=== PATIENT | male | born 1930 | race Caucasian/White ===

== ENCOUNTER 2017-08-21 14:05 | Observation (INO) | payer MEDICARE ==
[~2017-08-21] VITALS: Ht 188 cm; Wt 103.0 kg
[~2017-08-21 14:05] MED LIST: SYNT137T PO; TAMS0.4C67 PO
[2017-08-21 14:19] VITALS: BP 140/60; PULSE 78; RESP 16; TEMP 98.2; O2SAT 97
[2017-08-21] MEDS ORDERED: SODIUM CHLOR 0.9% 1000 ML INJ 1,000 ML IV SCH ×2 (14:56→17:15)
[2017-08-21] MEDS ORDERED: SODIUM CHLORIDE 0.9% FLUSH 10 ML FLUSH IV FLUSH PRN (15:00)
[2017-08-21 15:02] VITALS: O2SAT 97
[2017-08-21] MEDS ORDERED: LEVO137T2 PO (15:19)
[2017-08-21] MEDS ORDERED: TAMS0.4C4 (15:19)
[2017-08-21 15:20] VITALS: BP 95/64; PULSE 75; RESP 20
[2017-08-21 15:21] LABS: AUTOMATED NEUTROPHIL # 4.1 TH/MM3 (1.8-7.7); BASOPHIL # 0.1 TH/MM3 (0-0.2); BASOPHIL % 0.8 % (0.0-2.0); EOSINOPHIL # 0.1 TH/MM3 (0-0.4); EOSINOPHIL % 0.8 % (0.0-4.0); HEMATOCRIT 24.1 % (39.0-51.0); HEMOGLOBIN 8.2 GM/DL (13.0-17.0); LYMPH % 17.1 % (9.0-44.0); LYMPHOCYTE # 1.1 TH/MM3 (1.0-4.8); MEAN CELL VOLUME 89.6 FL (80.0-100.0); MEAN CORPUSCULAR HEMOGLOBIN 30.5 PG (27.0-34.0); MEAN CORPUSCULAR HGB CONC 34.1 % (32.0-36.0); MEAN PLATELET VOLUME 10.1 FL (7.0-11.0); MONO % 16.3 % (0.0-8.0); PLATELET COUNT 159 TH/MM3 (150-450); RED BLOOD COUNT 2.69 MIL/MM3 (4.50-5.90); RED CELL DISTRIBUTION WIDTH 15.3 % (11.6-17.2); WHITE BLOOD COUNT 6.4 TH/MM3 (4.0-11.0)
[2017-08-21 15:28] LABS: CHLORIDE 97 MEQ/L (98-107); SODIUM (NA) 130 MEQ/L (136-145)
[2017-08-21 15:31] LABS: CALCIUM 8.1 MG/DL (8.5-10.1)
[2017-08-21 15:32] LABS: ALBUMIN 2.6 GM/DL (3.4-5.0); BICARBONATE 22.8 MEQ/L (21.0-32.0); BLOOD UREA NITROGEN 35 MG/DL (7-18); GLUCOSE,RANDOM 99 MG/DL (74-106)
[2017-08-21 15:34] LABS: PROTHROMBIN TIME - PATIENT 10.4 SEC (9.8-11.6)
[2017-08-21 15:35] LABS: ALT (GPT) 25 U/L (12-78); AST (GOT) 39 U/L (15-37); GLOMERULAR FILTRATION RATE 30 ML/MIN (>89)
[2017-08-21 15:37] LABS: TOTAL BILIRUBIN ADULT 0.4 MG/DL (0.2-1.0); TOTAL PROTEIN 7.1 GM/DL (6.4-8.2)
[2017-08-21 15:38] LABS: ALKALINE PHOSPHATASE 79 U/L (45-117)
[2017-08-21 15:40] LABS: TROPONIN I LESS THAN 0.02 NG/ML (0.02-0.05)
--- NOTE | 2017-08-21 15:43 | PD ---
HPI Chief Complaint: General Weakness Time Seen by Provider: 14:40 Travel History International Travel<30 days: No Contact w/Intl Traveler<30days: No Traveled to known affect area: No History of Present Illness HPI Patient is an 87-year-old male who comes in complaining of generalized weakness. It sounds like he has been having issues for the past few months, that have worsened for the past 2 weeks. Both he and his are poor historians. His is most concerned about him being able to see the doctors who he has scheduled appointments for. He does have CAT scan results with him that showed that he has metastatic renal cell carcinoma, however he does not seem to understand that he has this. He describes at some point needing a blood transfusion, but refusing it. He denies any blood in his stool or dark stools. He says he gets very short of breath when he walks. He says he feels like his legs are going to give out on him. He denies having any pains. He says that he has not been eating because all food taste bad to him. He does report drinking fluids. It is unclear what makes him feel better or worse. Severity is moderate. 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) Autoimmune Disease: No Blood Disorders: No Cancer: No Cardiovascular Problems: No High Cholesterol: Yes Diabetes: No Diminished Hearing: No Endocrine: Yes Gastrointestinal Disorders: Yes (GERD) Glaucoma: No Genitourinary: No Hepatitis: No Hiatal Hernia: No Immune Disorder: No Musculoskeletal: Yes (ARTHRITIS) Neurologic: No Psychiatric: No Reproductive: No Respiratory: No Thyroid Disease: Yes Influenza Vaccination: No Past Surgical History Abdominal Surgery: Yes (GALL BLADDER, APPY) AICD: No Appendectomy: Yes Arteriovenous Shunt: No Cardiac Surgery: No Cholecystectomy: Yes Ear Surgery: No Endocrine Surgery: No Genitourinary Surgery: No Insulin Pump: No Joint Replacement: No Oral Surgery: No Pacemaker: No Thoracic Surgery: No Social History Alcohol Use: Yes (OCC) Tobacco Use: No Substance Use: No Allergies-Medications (Allergen,Severity, Reaction): Coded Allergies: cephalexin (Unverified Allergy, Severe, RASH, 08/21/17) Reported Meds & Prescriptions Reported Meds & Active Scripts Active Reported Tamsulosin (Tamsulosin HCl) 0.4 Mg Cap 0.4 Mg HS Levothyroxine (Levothyroxine Sodium) 137 Mcg Tab 112 Mcg PO DAILY Review of Systems ROS Limitations: Uncooperative General / Constitutional: No: Fever Cardiovascular: No: Chest Pain or Discomfort Respiratory: Positive: Shortness of Breath Gastrointestinal: No: Nausea, Abdominal Pain Musculoskeletal: Positive: Edema Neurologic: Positive: Weakness Physical Exam Narrative GENERAL: Awake and alert, in no acute distress. SKIN: Focused skin assessment warm/dry. Pale in color, no wounds or signs of infection. HEAD: Atraumatic. Normocephalic. EYES: Pupils equal and round. No scleral icterus. Pale conjunctivae. ENT: Mucous membranes pink and moist. NECK: Trachea midline. No JVD. CARDIOVASCULAR: Regular rate and rhythm. No murmur appreciated. RESPIRATORY: No accessory muscle use. Clear to auscultation. Breath sounds equal bilaterally. GASTROINTESTINAL: Abdomen soft, non-tender, nondistended. MUSCULOSKELETAL: No obvious deformities. No clubbing. No cyanosis. 3+ pitting edema bilateral lower extremities. NEUROLOGICAL: Awake and alert. No obvious cranial nerve deficits. Motor grossly within normal limits. Normal speech. PSYCHIATRIC: Appropriate mood and affect; insight and judgment normal. Data Data Last Documented VS Vital Signs Date Time Temp Pulse Resp B/P (MAP) Pulse Ox O2 Delivery O2 Flow Rate FiO2 08/21/17 15:20 75 20 95/64 (74) 08/21/17 15:02 97 Room Air 08/21/17 14:19 98.2 Orders Orders Electrocardiogram (08/21/17 14:56) Complete Blood Count With Diff (08/21/17 14:56) Comprehensive Metabolic Panel (08/21/17 14:56) Prothrombin Time / Inr (Pt) (08/21/17 14:56) Act Partial Throm Time (Ptt) (08/21/17 14:56) Troponin I (08/21/17 14:56) Thyroid Stimulating Hormone (08/21/17 14:56) Lactic Acid Sepsis Protocol (08/21/17 14:56) Chest, Single Ap (08/21/17 14:56) Ct Brain W/O Iv Contrast(Rout) (08/21/17 14:56) Blood Glucose (08/21/17 14:56) Ecg Monitoring (08/21/17 14:56) Iv Access Insert/Monitor (08/21/17 14:56) Oximetry (08/21/17 14:56) Sodium Chloride 0.9% Flush (Ns Flush) (08/21/17 15:00) Sodium Chlor 0.9% 1000 Ml Inj (Ns 1000 M (08/21/17 14:56) Type And Screen (08/21/17 14:58) Admit Order (Ed Use Only) (08/21/17 ) Consult Palliative Care (08/21/17 ) Labs Laboratory Tests Test 08/21/17 15:00 08/21/17 15:35 White Blood Count 6.4 TH/MM3 Red Blood Count 2.69 MIL/MM3 Hemoglobin 8.2 GM/DL Hematocrit 24.1 % Mean Corpuscular Volume 89.6 FL Mean Corpuscular Hemoglobin 30.5 PG Mean Corpuscular Hemoglobin Concent 34.1 % Red Cell Distribution Width 15.3 % Platelet Count 159 TH/MM3 Mean Platelet Volume 10.1 FL Neutrophils (%) (Auto) 65.0 % Lymphocytes (%) (Auto) 17.1 % Monocytes (%) (Auto) 16.3 % Eosinophils (%) (Auto) 0.8 % Basophils (%) (Auto) 0.8 % Neutrophils # (Auto) 4.1 TH/MM3 Lymphocytes # (Auto) 1.1 TH/MM3 Monocytes # (Auto) 1.0 TH/MM3 Eosinophils # (Auto) 0.1 TH/MM3 Basophils # (Auto) 0.1 TH/MM3 CBC Comment DIFF FINAL Differential Comment Prothrombin Time 10.4 SEC Prothromb Time International Ratio 1.0 RATIO Activated Partial Thromboplast Time 28.5 SEC Blood Urea Nitrogen 35 MG/DL Creatinine 2.10 MG/DL Random Glucose 99 MG/DL Total Protein 7.1 GM/DL Albumin 2.6 GM/DL Calcium Level 8.1 MG/DL Alkaline Phosphatase 79 U/L Aspartate Amino Transf (AST/SGOT) 39 U/L Alanine Aminotransferase (ALT/SGPT) 25 U/L Total Bilirubin 0.4 MG/DL Sodium Level 130 MEQ/L Potassium Level 4.8 MEQ/L Chloride Level 97 MEQ/L Carbon Dioxide Level 22.8 MEQ/L Anion Gap 10 MEQ/L Estimat Glomerular Filtration Rate 30 ML/MIN Troponin I LESS THAN 0.02 NG/ML Thyroid Stimulating Hormone 3rd Gen 19.000 uIU/ML Lactic Acid Level 1.9 mmol/L MDM Medical Decision Making Medical Screen Exam Complete: Yes Emergency Medical Condition: Yes Medical Record Reviewed: Yes Interpretation(s) ECG shows normal sinus rhythm at 68 with first-degree AV block. Differential Diagnosis Electrolyte abnormalities versus anemia versus metastatic carcinoma Narrative Course Patient is an 87-year-old male who comes in complaining of weakness. Exam shows large edema of his bilateral lower extremities. Patient is slightly hypotensive as well. IV established, labs sent. Labs show a hemoglobin of 8.2. Patient given IV fluids. CT head obtained, shows no acute abnormalities. . Chest x-ray ordered shows no acute abnormalities. Patient has elevated Cr. He is weak and unable to walk. He will be admitted for further management. Diagnosis Primary Impression: Metastatic cancer Additional Impressions: Weakness Unable to walk Admitting Information Admitting Physician Requests: Admit Paty Mejia MD Aug 21, 2017 15:43
--- NOTE | 2017-08-21 15:45 | RADRPT ---
EXAM DATE/TIME: 08/21/2017 15:21 [facility] COMPARISON: No previous studies available for comparison. INDICATIONS : Weakness for 2 months MEDICAL HISTORY : None. SURGICAL HISTORY : None. ENCOUNTER: Initial ACUITY: 2 months PAIN SCORE: 0/10 LOCATION: Bilateral chest FINDINGS: A single view of the chest demonstrates the lungs to be symmetrically aerated without evidence of mas s, infiltrate or effusion. The cardiomediastinal contours are unremarkable. Osseous structures are intact. CONCLUSION: Negative for acute process Grey Helms MD FACR on August 21, 2017 at 15:43 Board Certified Radiologist. This report was verified electronically.
--- NOTE | 2017-08-21 16:00 | RADRPT ---
EXAM DATE/TIME: 08/21/2017 15:13 [facility] COMPARISON: CT BRAIN W/O CONTRAST, August 21, 2015, 13:09. INDICATIONS : Weakness. RADIATION DOSE: 60.87 CTDIvol (mGy) MEDICAL HISTORY : None SURGICAL HISTORY : None. ENCOUNTER: Initial ACUITY: 2 months PAIN SCALE: 0/10 LOCATION: cranial Complete Appropriate Items Uzt-[id number]-[id number]: ID X 2: Complete NameDate of BirthPatient Name Band Estimated radiation dose: Verified protocol and related expected exam dose. Education: Nurse/Technologist explained procedure to patient/family. Patient/family demonstrates understanding of procedure. Comments: Images Restored: None for RestoreTechnologist(s) : Deepa Gross MR#[id number] :[birth year] Exam date/desc:August 21, 2017CT BRAIN W/O CONTRAST TECHNIQUE: Multiple contiguous axial images were obtained of the head. Using automated exposure control and adj ustment of the mA and/or kV according to patient size, radiation dose was kept as low as reasonably a chievable to obtain optimal diagnostic quality images. DICOM format image data is available electro nically for review and comparison. FINDINGS: CEREBRUM: The ventricles are normal for age. Stable, symmetric cortical atrophy with some periventricular smal l vessel ischemic demyelination and an old punctate lacunar type infarct in the left basal ganglia. N o evidence of midline shift, mass lesion, hemorrhage or acute infarction. No extra-axial fluid colle ctions are seen. POSTERIOR FOSSA: The cerebellum and brainstem are intact. The 4th ventricle is midline. The cerebellopontine angle i s unremarkable. EXTRACRANIAL: The visualized portion of the orbits is intact. Small retention cyst posteriorly in the right maxilla ry antrum. SKULL: The calvaria is intact. No evidence of skull fracture. CONCLUSION: 1. Stable chronic changes with some cortical atrophy, periventricular small vessel ischemic demyelina tion in punctate old lacunar type infarct in the left basal ganglia. 2. Small retention cyst in the posterior aspect the right maxillary antra characteristic of mild time broker maite sinusitis. 3. Nothing acute. Wilain Phelps MD on August 21, 2017 at 15:56 Board Certified Radiologist. This report was verified electronically.
[2017-08-21 16:45] VITALS: BP 122/66; PULSE 74; RESP 20; O2SAT 96
[2017-08-21] MEDS ORDERED: PANTOPRAZOLE SOD 20 MG DELAYED RELEASE TAB PO SCH (17:15)
[2017-08-21 18:00] VITALS: BP 110/68; PULSE 72; RESP 20; O2SAT 97
--- NOTE | 2017-08-21 19:01 | MH ---
cc: EDUARDA LE M.D. DATE OF ADMISSION: 08/21/2017 ADMITTING DIAGNOSIS: 1. Probable advanced bilateral renal cell carcinoma with metastasis to the bilateral retroperitoneal area and right adrenal gland, as well as renal invasion on the right side. 2. Anemia of chronic disease with iron deficiency. 3. Recent positive occult blood test. 4. Stage III chronic kidney disease. 5. BPH. 6. Hypothyroidism with increased TSH. 7. Peripheral artery disease. 8. Chronic venous insufficiency in the lower extremities. 9. Diverticulosis. 10. History of depression. PERTINENT HISTORY: The patient is an 87-year-old white male who came to the emergency room today because of just increasing fatigue. He recently has had outpatient evaluation and found to have worsening anemia. He has had a mild chronic anemia for going back to earlier in the year but recently in July a hemoglobin level done on 07/29/2017 was 8.2. His BUN then was 21, creatinine 1.4. He had a repeat hemoglobin on 08/15/17 that was 7.8. His hemoglobin was 8.6 on 08/01/2017 and at that time had a low iron level and low iron percent saturation. He subsequently had a fecal occult blood test that was positive for stool. He was seen by his primary care physician, Dr. Deshpande at the end of July and she was seen by her on 08/05/17 and she referred him to Dr. Ronquillo who had seen him in the past for anemia and pancytopenia in 2015. She also arranged for referral to integration director and ordered a CT scan of the abdomen and pelvis at that time. The CT scan of the abdomen and pelvis was done on 08/09/17 and it showed continued interval increase in size of a right renal mass with evidence of extensive metastatic disease throughout the retroperitoneum bilaterally and ipsilateral renal vein invasion with metastasis to the right adrenal gland. There was also evidence in the contralateral left kidney of an 8 cm solid tissue. The soft tissue mass roughly interposed between the lower pole region and the ipsilateral psoas muscle and paraspinous muscle, presumed metastatic focus with additional sites of nodularity elsewhere in the left retroperitoneum. There was extensive distal colonic diverticulosis. The lower lungs were noted to be clear. The liver was without space occupying lesion. The spleen was without enlargement. No pancreatic abnormality. 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 He had been followed by Dr. John Worthy and the last imaging study that I saw in his record was from an ultrasound done on 12/12/15 that showed a stable 5.0 cm solid mass in the right kidney. He was last seen by Dr. Worthy according to the EHR on 12/13/15 and the patient confirms that he never went back to see him after that. His hemoglobin back in February 04, 2017, was 11.1 and it was 11.4 on 08/06/2016. In the last two or three months, though, he has gotten a little weaker, that being his primary symptoms. He is being admitted for his generalized weakness, slight dehydration and further decision about what to do about his current cancerous process. The patient is being admitted for Hospice consult. MEDICAL HISTORY Other than what has been mentioned as far as the progression over the last month and diagnostic workup showing the abnormalities in both kidneys and retroperitoneal area. The patient has been a relatively healthy male for most of his life. He has had some bilateral carotid artery plaque. He has had some slight peripheral artery disease on a prior JOSEFINA in 2013. He has had hypothyroidism that he takes medication for. He has had stage III chronic kidney disease and a mild anemia presumed to be a chronic disease. He has had B12 deficiency in the past but a recent B12 level done on 08/01/17 was normal. He has had a history of BPH, atherosclerosis of the aorta. He has never been diagnosed with heart disease. He is not on any treatment for hypertension or diabetes. Denies any liver disease. He has had diverticulosis on a colonoscopy 04/07/15 and again in 09/20/06. He had a normal EGD on 09/20/06. No stroke or seizures. He had some brief pancytopenia that he saw Dr. Ronquillo for in 2014 that seemed to resolve. PAST SURGICAL HISTORY: 1. Appendectomy. 2. Cholecystectomy. 3. Left knee arthroplasty. 4. Colonoscopy as mentioned on 09/20/06 and 04/07/15 that showed diverticulosis. Normal EGD 09/20/06. ALLERGIES: KEFLEX. RAPAFLO LOPID MEDICATIONS: 1. His EHR at the office states he is on Levothyroxine 112 micrograms daily. 2. Tamsulosin 0.4 mg a day. 3, He was given a script for Mirtazapine when he saw Dr. Montaño on 08/05/17 but he never started on that. Office record indicates he takes Finasteride 5 milligrams a day. FAMILY HISTORY: His mother and father both of a stroke. Mother was 82. Father 93. SOCIAL HISTORY He is . 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 He drinks occasional beer. He smoked many years ago but only smoked a pack a week for 10-15 years. REVIEW OF SYSTEMS General: No the generalized weakness. No fever, no sweats. HEENT: Without complaints. Cardiovascular: No chest pain, orthopnea, PND. Pulmonary: No cough, hemoptysis, wheezing. GI: Denies any nausea, vomiting, abdominal pain. He has had decreased appetite. He has not seen any black stools or bleeding. : He gets up at night a few times to urinate. Extremities: He has a long history of chronic edema and venous insufficiency. He does not take anything for this. Neuro: No memory loss or confusion. No focal weakness, more generalized weakness. PHYSICAL EXAMINATION: Elderly white male in no acute distress. He states he has lost weight over the last few months. VITAL SIGNS: Temperature is 98.2, pulse 78, respirations 16, O2 sat 97% on room air, BP 140/60 initially. On recheck it was 95/64. HEENT: Pupils equal. Nose negative. Sclerae nonicteric. Mouth without inflammation. The TMs clear. Neck: Without JVD, no thyromegaly. Heart: Regular rate and rhythm. No murmur. Lungs: Clear. Abdomen: Soft, nontender. Could not palpate any definite mass. Extremities: He has 2 to 3+ edema of the ankles. No calf tenderness. Pulses are 1+ in both feet. Neuro: Motor strength symmetrical, sensation intact. Oriented x3. LABORATORY His hemoglobin was 8.2 which is similar to what it has been in the last month. His white count is 6.4, platelet count 159,000. His BUN was 35, creatinine 2.1, as mentioned on 07/29/17 his BUN was 21 and creatinine 1.4, then with a GFR of 45. His GFR was 30 on lab today. TSH is high at 19. AST was 39, ALT 25, alkaline phosphatase 79. Glucose 99, lactic acid 1.9. Sodium was a little low at 130, potassium 4.8. CO2 22.8. INR was 1.0. IMAGING STUDIES: A chest x-ray done in the ED. The chest x-ray was negative for acute process. CT of the head showed stable chronic changes with some cortical atrophy. Periventricular small-vessel ischemic demyelinization and old punctate lacunar type infarct in the left basoganglia. He has never had any symptoms of that. ASSESSMENT As noted. It would appear he likely has advanced renal cell carcinoma with metastases. After discussion with the patient he is adamant about not wanting any biopsy or chemo or radiation therapy, all he wants to do is be made comfortable. I discussed with him at length about palliative care and he is desirous of having Hospice intervene and see him. He would like to go home with Hospice at this point. We will put the Hospice consult in, keep him in the hospital and give him some IV fluids potentially tonight. Will increase his levothyroxine dose to 125 micrograms a day. I will put him on some ranitidine because he had a recent Hemoccult positive stool. I don't think evaluation of that is worthwhile at this point either. We will put him on some ferrous sulfate to help build his iron level up, 325 milligrams twice a day. He will be maintained on his Flomax, finasteride as well. He is a DNR. MD JOESPH Darby/AKASH /5:15 PM /5:46 PM
[2017-08-21] MEDS ORDERED: FERROUS SULFATE 325 MG (65 MG ELEMENTAL IRON) TAB PO SCH (21:00)
[2017-08-21] MEDS ORDERED: TAMSULOSIN HCL 0.4 MG CAP PO SCH (21:00)
[2017-08-22] MEDS ORDERED: LEVOTHYROXINE SODIUM 125 MCG TAB PO SCH (06:00)
[2017-08-22] MEDS ORDERED: FINASTERIDE 5 MG TAB PO SCH (09:00)
--- NOTE | 2017-08-22 15:05 | EKG ---
Date Performed: 08/21/2017 Time Performed: 15:31:08 PTAGE: 87 years EKG: Sinus rhythm WITH FIRST DEGREE AV BLOCK ABNORMAL ECG PREVIOUS TRACING : 08/26/2007 13.10 Rate has increased since prior tracing. DOCTOR: Magdaleno Mcgrath Interpretating Date/Time 08/22/2017 15:04:10
== END 2017-08-21 18:27 | disposition hospice, home (50) ==
LOC: PHED 14:05 → PHEDA 16:19 → INTOOBSV 16:19
PROVIDERS: ADMIT Family Medicine; ATTEND Family Medicine
DX: C64.9 Malignant neoplasm of unspecified kidney, except renal pelvis (principal); D63.8 Anemia in other chronic diseases classified elsewhere; D50.9 Iron deficiency anemia, unspecified; N18.3 Chronic kidney disease, stage 3 (moderate); E03.9 Hypothyroidism, unspecified; I73.9 Peripheral vascular disease, unspecified; I87.2 Venous insufficiency (chronic) (peripheral); C79.71 Secondary malignant neoplasm of right adrenal gland; R06.02 Shortness of breath; K57.30 Diverticulosis of large intestine without perforation or abscess without bleeding; E86.0 Dehydration; R60.0 Localized edema; I95.9 Hypotension, unspecified; R26.2 Difficulty in walking, not elsewhere classified; I44.0 Atrioventricular block, first degree; R94.31 Abnormal electrocardiogram [ECG] [EKG]; G31.9 Degenerative disease of nervous system, unspecified; J34.1 Cyst and mucocele of nose and nasal sinus; E78.00 Pure hypercholesterolemia, unspecified; K21.9 Gastro-esophageal reflux disease without esophagitis; M47.9 Spondylosis, unspecified; F32.9 Major depressive disorder, single episode, unspecified; N40.0 Benign prostatic hyperplasia without lower urinary tract symptoms; Z79.899 Other long term (current) drug therapy; Z87.891 Personal history of nicotine dependence; Z66 Do not resuscitate
CPT/HCPCS: 70450; 71045; 80053; 83605; 84443; 84484; 85025; 85610; 85730; 86850; 86900; 86901; 93005; 96360; 96361; 99285; G0378; J7030